=== PATIENT | female | born 1975 | race Caucasian/White ===

== ENCOUNTER 2021-06-11 10:43 | Emergency (ER) | payer BC ==
[~2021-06-11] VITALS: Ht 152.4 cm; Wt 66.6 kg
--- NOTE | 2021-06-11 11:16 | PHYS DOC ---
Past History Past Surgical History: Alcohol Use: None General Adult EDM: Chief Complaint: CONSTIPATION HPI: HPI: Patient is a 46-year-old female presents with constipation. Patient states that symptoms began 3 weeks ago. Patient has been using MiraLAX twice a day and has used mag citrate with no results. Patient states that she is having small, bowel movements. Denies abdominal pain, vomiting, fever, chest pain, shortness of breath. Patient does report mild nausea and decreased appetite. Denies medical history. Review of Systems: Review of Systems: ROS At least 10 ROS systems have been reviewed and are negative except as documented in the HPI. General: Negative except as outlined in HPI above. Skin: Negative except as outlined in HPI above. HEENT: Negative except as outlined in HPI above. Neck: Negative except as outlined in HPI above. Respiratory: Negative except as outlined in HPI above.. Cardiovascular: Negative except as outlined in HPI above. Abdomen: Negative except as outlined in HPI above. : Negative except as outlined in HPI above. Back/MSK: Negative except as outlined in HPI above. Neuro: Negative except as outlined in HPI above. Psych: Negative except as outlined in HPI above. Allergies: Allergies: Allergies Coded Allergies Type Severity Reaction Last Updated Verified Penicillins Allergy Unknown Hives 06/11/21 Yes Physical Exam: PE: Constitutional: Well developed, well nourished, no acute distress, non-toxic appearance. [] HENT: bilateral external ears normal, oropharynx moist, no oral exudates, nose normal. [] Eyes: PERRLA, conjunctiva normal, no discharge. [] Neck: Normal range of motion, no tenderness, supple, no stridor. [] Cardiovascular:Heart rate regular rhythm, no murmur [] Lungs & Thorax: Bilateral breath sounds clear to auscultation [] Abdomen: Bowel sounds normal, soft, mild tenderness Skin: Warm, dry, no erythema, no rash. [] Back: No tenderness, no CVA tenderness. [] Extremities: No tenderness, no cyanosis, no clubbing, ROM intact, no edema. [] Neurologic: Alert and oriented X 3, normal motor function, normal sensory function, no focal deficits noted. [] Psychologic: Affect normal, judgement normal, mood normal. [] Current Patient Data: Vital Signs: Vital Signs Date Time Temp Pulse Resp B/P (MAP) Pulse Ox O2 Delivery O2 Flow Rate FiO2 06/11/21 10:46 97.7 88 18 128/90 (103) 100 Room Air EKG: EKG: [] Radiology/Procedures: Radiology/Procedures: []XR ABDOMEN 2V History: Reason: CONSTIPATION x3WKS / Spl. Instructions: / History: Technique: Upright and supine views of the abdomen. Comparison: None. Findings: Imaged lung bases are unremarkable. Mild small bowel gas. Air and stool throughout the colon. Mild distal colonic stool burden. Postoperative changes overlying the pelvis. Lower lumbar spondylosis. Impression: 1. Nonobstructed bowel gas pattern. Electronically signed by: Michael Suarez DO (06/11/2021 12:28 PM) [id number] Heart Score: C/O Chest Pain: No Risk Factors: Risk Factors: DM, Current or recent (<one month) smoker, HTN, HLP, family history of CAD, obesity. Risk Scores: Score 0 - 3: 2.5% MACE over next 6 weeks - Discharge Home Score 4 - 6: 20.3% MACE over next 6 weeks - Admit for Clinical Observation Score 7 - 10: 72.7% MACE over next 6 weeks - Early Invasive Strategies Course & Med Decision Making: Course & Med Decision Making Pertinent Labs and Imaging studies reviewed. (See chart for details) [] 46-year-old female presents with constipation. Patient states that she is having small, bowel movements. Patient has been using MiraLAX and also mag citrate with no results. Work-up in ER consisted of abdominal x-ray. Zofran for nausea. Patient is afebrile. Denying abdominal pain. Mild tenderness on physical exam. Abdominal x-ray was unremarkable. No obstruction seen. Discussed results with patient. Advised patient to continue MiraLAX. Patient also given mag citrate to take at home. Advised patient to repeat mag citrate if she does not have results. Patient continue taking MiraLAX twice a day until stool pattern returns. Drink plenty of fluids. Follow-up with PCP. Discussed return precautions in length with patient. Patient verbalizes understanding of discharge instructions. Nieshaon Disclaimer: Kenji Disclaimer: This electronic medical record was generated, in whole or in part, using a voice recognition dictation system. Departure Departure: Impression: Primary Impression: Constipation Qualified Codes: K59.00 - Constipation, unspecified Disposition: 01 HOME / SELF CARE / HOMELESS Condition: STABLE Referrals: PCP,UNKNOWN (PCP) Patient Instructions: Constipation, Adult, [id number] Additional Instructions: You are seen in the emergency room for constipation. We did an abdominal x-ray which was unremarkable. No signs of obstruction or masses. I am going to send you home with mag citrate. Please drink in full. If results are not achieved, you can repeat the process again. Continue taking MiraLAX twice a day until your stool returns to normal consistency for you. Make sure you are drinking plenty of water. Return to the emergency room if you have worsening symptoms or concerns such as abdominal pain, no results from medication, fever, uncontrolled nausea vomiting. EMERGENCY DEPARTMENT GENERAL DISCHARGE INSTRUCTIONS Thank you for coming to [facility] (ED) today and trusting us with you care. We trust that you had a positivie experience in our Emergency Department. If you wish to speak to the department management, you may call the director at [phone]. YOUR FOLLOW UP INSTRUCTIONS ARE FOLLOWS: 1. Do you have a private Doctor? If you do not have a private doctor, please ask for a resource list of physicians or clinics that may be able to assist you with follow up care. 2. The Emergency Physician has interpreted your x-rays. The X-Ray specialist will also review them. If there is a change in the findings, you will be notified in 48 hours when at all possible. 3. A lab test or culture has been done, your results will be reviewed and you will be notified if you need a change in treatment. ADDITIONAL INSTRUCTIONS AND INFORMATION: 1. Your care today has been supervised by a physician who is specially trained in emergency care. Many problems require more than one evaluation for a complete diagnosis and treatment. We recommend that you schedule your follow up appointment as recommended to ensure complete treatment of you illness or injury. If you are unable to obtain follow up care and continue to have a problem, or if your condition worsens, we recommend that you return to the ED. 2. We are not able to safely determine your condition over the phone nor are we able to give sound medical advice over the phone. For these safety reasons, if you call for medical advice we will ask you to come to the ED for further evaluation. 3. If you have any questions regarding these discharge instructions please call the ED at [phone]. SAFETY INFORMATION: In the interest of safety, wellness, and injury prevention; we encourage you to wear your sealbelt, if you smoke; quite smoking, and we encourage family to use a protective helmet for bicycling and other sporting events that present an increased risk for head injury. IF YOUR SYMPTOMS WORSEN OR NEW SYMPTOMS DEVELOP, OR YOU HAVE CONCERNS ABOUT YOUR CONDITION; OR IF YOUR CONDITION WORSENS WHILE YOU ARE WAITING FOR YOUR FOLLOW UP APPOINTMENT; EITHER CONTACT YOUR PRIMARY CARE DOCTOR, THE PHYSICIAN WHOSE NAME AND NUMBER YOU WERE GIVEN, OR RETURN TO THE ED IMMEDIATELY. DANYA LOW APRN Jun 11, 2021 11:16
[2021-06-11] MEDS ORDERED: ONDANSETRON ODT 4 MG TAB.RAPDIS PO ONE (12:00)
--- NOTE | 2021-06-11 12:30 | RAD ---
XR ABDOMEN 2V History: Reason: CONSTIPATION x3WKS / Spl. Instructions: / History: Technique: Upright and supine views of the abdomen. Comparison: None. Findings: Imaged lung bases are unremarkable. Mild small bowel gas. Air and stool throughout the colon. Mild di stal colonic stool burden. Postoperative changes overlying the pelvis. Lower lumbar spondylosis. Impression: 1. Nonobstructed bowel gas pattern. Electronically signed by: Michael Suarez DO (06/11/2021 12:28 PM) [id number]
[2021-06-11 12:55] VITALS: BP 117/72
[2021-06-11] MEDS ORDERED: MAGNESIUM CITRATE 296 ML SOLUTION. ONE (12:55)
[2021-06-11] MEDS ORDERED: MAGNESIUM CITRATE 296 ML SOLUTION. PO ONE (13:00)
== END 2021-06-11 12:58 | disposition home or self-care (01) ==
LOC: ER 10:43
DX: K59.00 Constipation, unspecified (principal); R11.0 Nausea; Z98.890 Other specified postprocedural states; Z88.0 Allergy status to penicillin
CPT/HCPCS: 74019; 99283; Q0162